=== PATIENT | male | born 2000 | race Caucasian/White ===

== ENCOUNTER → 2023-04-24 | Outpatient (CLI) | payer OTHER | LOC: M WHC 10:36 | PROVIDERS: ATTEND Physician Assistant | DX: K40.30 Unilateral inguinal hernia, with obstruction, without gangrene, not specified as recurrent (principal) ==

== ENCOUNTER → 2023-05-07 | Outpatient (CLI) | payer OTHER | LOC: M RAD 10:51 | PROVIDERS: ATTEND Physician Assistant | DX: K40.00 Bilateral inguinal hernia, with obstruction, without gangrene, not specified as recurrent (principal); Z53.9 Procedure and treatment not carried out, unspecified reason ==

== ENCOUNTER → 2023-05-10 | Outpatient (CLI) | payer OTHER ==
[~2023-05-10] MED LIST: GASTROGRAFIN SOLUTION 30ML As Ordered ONE
== END ==
LOC: M RAD 11:52
PROVIDERS: ATTEND Physician Assistant
DX: K40.90 Unilateral inguinal hernia, without obstruction or gangrene, not specified as recurrent (principal)
CPT/HCPCS: 74176; Q9963